=== PATIENT | female | born 1950 | race Caucasian/White ===

== ENCOUNTER 2018-02-24 12:29 | Emergency (ER) | payer OTHER ==
[~2018-02-24] VITALS: Ht 157.5 cm; Wt 58.0 kg
[2018-02-24 12:35] VITALS: TEMP 36.7; Ht 157.5 cm; Wt 58.0 kg
--- NOTE | 2018-02-24 13:39 | DIAGNOSTIC IMAGING REPORT ---
R FOOT MIN 3 VIEWS ROUTINE CLINICAL HISTORY: foot pain, swelling, eval fx, pls include wt bearing films pain. Edema. COMPARISON: None. DISCUSSION: The bones and joint spaces appear intact. There is no evidence of fracture, dislocation or bony disease. There is no evidence for soft tissue swelling. Static views are unremarkable. Mild degenerative change first metatarsophalangeal joint. Small heel spur. IMPRESSION: Mild degenerative change first metatarsophalangeal joint. Heel spur. The above report was generated using voice recognition software. It may contain grammatical, syntax or spelling errors. Electronically signed by: Jaxon Rouse M.D. 02/24/2018 1:38 PM Dictated Date/Time: 02/24/2018 1:36 PM
--- NOTE | 2018-02-24 13:54 | EMERGENCY ROOM VISIT NOTE ---
ED Visit Note First contact with patient: 12:48 CHIEF COMPLAINT: Foot pain HISTORY OF PRESENT ILLNESS: This 68-year-old female patient presents to the emergency department by private vehicle complaining of swelling and pain in the right foot at rest and worse with weight bearing. The patient states that she twisted the foot falling off of her porch yesterday. She states the porch is about 18 inches high. She did not fall to the ground and there were no other associated injuries. She has been walking on the foot since the injury, but reports this greatly increases her pain. The patient rates the pain as aching and throbbing and 2/10 at rest, but 6/10 with putting weight on the foot. The patient has tried ibuprofen with some relief of the pain. The patient is able to walk. No numbness or weakness. No ankle pain. There are no lacerations of the foot. The patient is able to move all of their toes and their ankle without pain. No previous fracture to this foot. REVIEW OF SYSTEMS: GENERAL: A 6 system review of systems was completed with positives and pertinent negatives in the HPI. ALLERGIES: Reviewed in chart, see below. MEDICATIONS: No current medications. PMH: No significant past medical or surgical history. SOCIAL HISTORY: Lives at home. She denies tobacco use. PHYSICAL EXAM: Vital Signs: Reviewed Nurse's notes, vital signs stable. GENERAL : Pleasant and cooperative, in no acute distress, well-developed, well- nourished. MUSCULOSKELETAL: There is no visual deformity of the right foot. There is no erythema, but there is moderate diffuse soft tissue swelling and dependent ecchymosis. There is no warmth. There is tenderness and swelling over the dorsal and medial aspect of the right foot. There is no tenderness over the lateral or medial malleolus. No tenderness of the tib/fib. The range of motion of the foot is slightly limited secondary to pain. There is no tenderness over the plantar fascia. The skin is intact and there are no lacerations or puncture wounds. Dorsalis pedis pulse 2+. Capillary refill less than 2 seconds. IMAGING: R FOOT MIN 3 VIEWS ROUTINE CLINICAL HISTORY: foot pain, swelling, eval fx, pls include wt bearing films pain. Edema. COMPARISON: None. DISCUSSION: The bones and joint spaces appear intact. There is no evidence of fracture, dislocation or bony disease. There is no evidence for soft tissue swelling. Static views are unremarkable. Mild degenerative change first metatarsophalangeal joint. Small heel spur. IMPRESSION: Mild degenerative change first metatarsophalangeal joint. Heel spur. EMERGENCY DEPARTMENT COURSE: I examined the patient. Differential diagnosis includes sprain/strain, contusion, fracture, dislocation, among others. An X- ray of the right foot was reviewed by myself and read by radiologist and reveals no acute fracture. The patient was placed in a postop shoe and instructed on the use of crutches. The patient was educated regarding ongoing care at home, orthopedic follow-up, and return precautions should her symptoms worsen, she verbalized understanding. The patient was discharged home in good condition. Medication Reconciliation: I attest that I have personally reviewed the patient' s current medication list. Blood pressure screening: The patient was found to have normal blood pressure on screening and does not require follow-up for repeat blood pressure check. Patient was discussed with Dr. Ruvalcaba, who also evaluated the patient and agrees with my assessment and plan. Allergies Uncoded Allergies: CODEINE (Adverse Reaction, Unknown, 03/03/04) Vital Signs Date Time Temp Pulse Resp B/P (MAP) Pulse Ox O2 Delivery O2 Flow Rate FiO2 02/24/18 15:00 82 20 116/76 97 Room Air 02/24/18 12:35 36.7 95 20 139/76 97 Room Air Departure Information Impression Primary Impression: Contusion of foot Dispostion Home / Self-Care Condition GOOD Referrals Idalmis Hook D.O. (PCP) William Olivares, DO Patient Instructions ED Contusion Foot, [facility], [facility] Additional Instructions You have been evaluated and treated in the emergency department today for your right foot pain and swelling. X-rays today are negative for any fractures. Ice and elevation for 24-48 hours to help reduce pain and swelling. Ibuprofen 600mg and Tylenol 650 mg every 6 hours for the pain. For best results , alternate between ibuprofen and Tylenol every 3-4 hours. Avoid weight bearing and use crutches and post-op shoe until the pain subsides and you can walk without a limp. Follow up with family doctor or the orthopedic surgeon if symptoms persist in 5- 7 days. Please return to the emergency department if your pain becomes much more severe , if your swelling gets much worse, if you lose feeling or movement in the foot , or for any other concerns. Problem Qualifiers Primary Impression: Contusion of foot Encounter type: initial encounter Laterality: right Qualified Codes: S90.31XA - Contusion of right foot, initial encounter
--- NOTE | 2018-02-24 14:53 | EMERGENCY ROOM VISIT NOTE ---
ED Visit Note First contact with patient: 12:48 Patient was seen by our PA/[employer]. I was involved in the patient's care and did evaluate the patient myself. I was involved in the care throughout the ER stay. Patient presents with a right foot injury. Films show no fracture. The area is likely bruised. The patient is being placed in a postop shoe. She can return if worsening or not improving.
[2018-02-24 15:00] VITALS: BP 116/76; PULSE 82; O2SAT 97
== END 2018-02-24 15:15 | disposition home or self-care (01) ==
LOC: C.EDB 12:30 → C.EDD 15:15
DX: S90.31XA Contusion of right foot, initial encounter (principal); W17.89XA Other fall from one level to another, initial encounter